=== PATIENT | male | born 1965 | race Caucasian/White ===

== ENCOUNTER → 2016-12-04 | Outpatient (CLI) | payer OTHER | END | disposition home or self-care (01) | LOC: CFH 15:23 | PROVIDERS: ATTEND Orthopaedic Surgery | DX: M25.461 Effusion, right knee (principal) ==

== ENCOUNTER 2017-04-02 12:47 | Day surgery (SDC) | payer OTHER ==
[2017-03-27 09:14] VITALS: BP 123/86
[~2017-04-02] VITALS: Ht 193 cm; Wt 120.0 kg
[~2017-04-02 12:47] MED LIST: ATOR40TA78 PO; LISI1TAB7 PO
[2017-04-02] MEDS ORDERED: ROPIvacaine/PF 0.5%, 30 ML ONE (13:50)
[2017-04-02] MEDS ORDERED: LIDOCAINE/PF 1.5%-EPI 1:200K, 30ML ONE (13:51)
[2017-04-02 13:55] VITALS: BP 123/86
[2017-04-02] MEDS ORDERED: LACTATED RINGERS 1,000 ML IV SCH (13:55)
[2017-04-02] MEDS ORDERED: FENTANYL PF 250 MCG/5ML ONE (13:58)
[2017-04-02] MEDS ORDERED: MIDAZOLAM 1 MG/ML, 2ML ONE (13:58)
[2017-04-02] MEDS ORDERED: DEXAMETHASONE 4 MG/ML, 1ML ONE (14:32)
[2017-04-02] MEDS ORDERED: ONDANSETRON 2MG/ML, 2ML ONE (14:32)
[2017-04-02] MEDS ORDERED: PROPOFOL 10 MG/ML, 50ML ONE (14:32)
[2017-04-02] MEDS ORDERED: CEFAZOLIN 1,000 MG ONE (14:32)
[2017-04-02] MEDS ORDERED: HYDROcodone/APAP 7.5-325MG/15ML UDC ONE (15:25)
[2017-04-02] MEDS ORDERED: FENTANYL PF 100 MCG/2ML ONE (15:25)
[2017-04-02] MEDS ORDERED: METOPROLOL 1 MG/ML, 5ML IV PRN (15:30)
[2017-04-02] MEDS ORDERED: ALBUTEROL/IPRATROPIUM 2.5MG/0.5MG, 3 ML NPPB PRN (15:30)
[2017-04-02] MEDS ORDERED: HYDROcodone/APAP 7.5-325MG/15ML UDC PO PRN (15:30)
[2017-04-02] MEDS ORDERED: hydrALAzine 20 MG/ML, 1ML IV PRN (15:30)
[2017-04-02] MEDS ORDERED: OXYcodone 5 MG/5 ML ORAL.SOL UDC PO PRN (15:30)
[2017-04-02] MEDS ORDERED: ALBUTEROL SULFATE 2.5 MG/3 ML NPPB PRN (15:30)
[2017-04-02] MEDS ORDERED: KETOROLAC 30 MG/1 ML ONE (15:30)
[2017-04-02] MEDS ORDERED: ACETAMINOPHEN 325 MG TABLET PO PRN (15:30)
[2017-04-02] MEDS ORDERED: MEPERIDINE/PF 25MG/0.5ML IVPush PRN (15:30)
[2017-04-02] MEDS ORDERED: LABETALOL 5MG/ML, 20ML IV PRN (15:30)
[2017-04-02] MEDS ORDERED: MIDAZOLAM 1 MG/ML, 2ML IV PRN (15:30)
[2017-04-02] MEDS ORDERED: ONDANSETRON 2MG/ML, 2ML IVPush PRN (15:30)
[2017-04-02] MEDS ORDERED: PROMETHAZINE 25 MG/ML, 1ML IV PRN (15:30)
[2017-04-02] MEDS ORDERED: EPHEDRINE 50 MG/ML, 1ML IVPush PRN (15:30)
[2017-04-02] MEDS ORDERED: HYDROmorphone 1 MG/ML, 1ML IV PRN (15:30)
[2017-04-02] MEDS ORDERED: KETOROLAC 30 MG/1 ML IV PRN (15:30)
[2017-04-02] MEDS: FENTANYL PF 100 MCG/2ML IV PRN ×2 (15:32→15:41)
== END 2017-04-02 17:00 ==
LOC: OUT 12:47
PROVIDERS: ATTEND Orthopaedic Surgery
DX: S83.231A Complex tear of medial meniscus, current injury, right knee, initial encounter (principal); S83.281A Other tear of lateral meniscus, current injury, right knee, initial encounter; M23.41 Loose body in knee, right knee; M65.861 Other synovitis and tenosynovitis, right lower leg; I10 Essential (primary) hypertension; F17.200 Nicotine dependence, unspecified, uncomplicated; X58.XXXA Exposure to other specified factors, initial encounter; Y93.9 Activity, unspecified; Y92.9 Unspecified place or not applicable; Y99.9 Unspecified external cause status
CPT/HCPCS: 29880; J0690; J1100; J1885; J2250; J2405; J2704; J2795; J3010; J3490; J7120

== ENCOUNTER → 2018-08-30 | Outpatient (CLI) | payer OTHER ==
[~2018-08-30] MED LIST changes: +DIPHENHYDRAMINE 50 MG CAPSULE PO ONE; +DIPHENHYDRAMINE 50 MG/ML, 1ML ONE; +OMNIPAQUE 350 MG/ML, 100ML BOTTLE ONE
== END | disposition home or self-care (01) ==
LOC: RAD 11:33
PROVIDERS: ATTEND Internal Medicine Gastroenterology
DX: Z12.11 Encounter for screening for malignant neoplasm of colon (principal); Z11.3 Encounter for screening for infections with a predominantly sexual mode of transmission; D12.0 Benign neoplasm of cecum
CPT/HCPCS: 71260; 74177; J1200; Q9967

== ENCOUNTER 2018-10-04 07:14 | Day surgery (SDC) | payer OTHER ==
[~2018-10-04] VITALS: Ht 193 cm; Wt 116.0 kg
[~2018-10-04 07:14] MED LIST changes: -DIPHENHYDRAMINE 50 MG CAPSULE PO ONE; -DIPHENHYDRAMINE 50 MG/ML, 1ML ONE; -OMNIPAQUE 350 MG/ML, 100ML BOTTLE ONE
[2018-10-04] MEDS ORDERED: SODIUM CHLORIDE 0.9% 1,000 ML IV SCH (08:00)
[2018-10-04 08:23] VITALS: BP 105/73
[2018-10-04] MEDS ORDERED: LIDOCAINE-MPF 1%, 5ML ONE (08:31)
[2018-10-04 08:40] LABS: INTERNATIONAL NORMALIZED RATIO 0.95 (0.93-1.1); PROTHROMBIN TIME 10.1 Seconds (9.6-11.5)
[2018-10-04] MEDS ORDERED: MIDAZOLAM 1 MG/ML, 5ML ONE (08:50)
[2018-10-04] MEDS ORDERED: FENTANYL PF 100 MCG/2ML ONE ×2 (08:50)
[2018-10-04] MEDS ORDERED: FLUMAZENIL 0.1 MG/1 ML, 5ML ONE (08:50)
[2018-10-04] MEDS ORDERED: NALOXONE 1 MG/ML, 2ML ONE (08:51)
== END 2018-10-04 10:30 | disposition home or self-care (01) ==
LOC: OUT 07:14
PROVIDERS: ATTEND Specialist
DX: C18.9 Malignant neoplasm of colon, unspecified (principal); I10 Essential (primary) hypertension; Z72.89 Other problems related to lifestyle; Z98.890 Other specified postprocedural states; Z91.041 Radiographic dye allergy status
CPT/HCPCS: 36415; 49180; 77012; 85610; 88305; 99156; J2250; J3010; 99157; J2310

== ENCOUNTER 2018-10-07 11:29 | Day surgery (SDC) | payer OTHER ==
[~2018-10-07] VITALS: Ht 193 cm; Wt 116.1 kg
[2018-10-07 12:28] VITALS: BP 120/79
[2018-10-07] MEDS ORDERED: LACTATED RINGERS 1,000 ML IV SCH (12:39)
[2018-10-07 13:02] LABS: ALBUMIN 4.2 g/dL (3.4-5.0); ANION GAP 6 mmol/L (5-15); CHLORIDE 110 mmol/L (98-107); CREATININE 0.89 mg/dL (0.7-1.3)
[2018-10-07 13:07] LABS: ALANINE AMINOTRANSFERASE 36 U/L (12-78); ALKALINE PHOSPHATASE 61 U/L (45-117); BILIRUBIN,TOTAL 0.5 mg/dL (0.2-1.0); TOTAL PROTEIN 6.7 g/dL (6.4-8.2)
[2018-10-07] MEDS ORDERED: HEPARIN 1,000 UNITS/ML, 10ML ONE (13:15)
[2018-10-07] MEDS ORDERED: FENTANYL PF 100 MCG/2ML ONE (13:52)
[2018-10-07] MEDS ORDERED: MIDAZOLAM 1 MG/ML, 2ML ONE (13:52)
[2018-10-07] MEDS ORDERED: BUPIVACAINE/EPI 0.5% 1:200K INFIL ONE (14:12)
[2018-10-07] MEDS ORDERED: OXYcodone 5 MG/5 ML ORAL.SOL UDC ONE (14:45)
[2018-10-07] MEDS ORDERED: FENTANYL PF 100 MCG/2ML IV PRN (15:00)
[2018-10-07] MEDS ORDERED: LABETALOL 5MG/ML, 20ML IV PRN (15:00)
[2018-10-07] MEDS ORDERED: OXYcodone 5 MG/5 ML ORAL.SOL UDC PO PRN (15:00)
[2018-10-07] MEDS ORDERED: ONDANSETRON 2MG/ML, 2ML IVPush PRN (15:00)
[2018-10-07] MEDS ORDERED: MIDAZOLAM 1 MG/ML, 2ML IV PRN (15:00)
[2018-10-07] MEDS ORDERED: MEPERIDINE/PF 25MG/0.5ML IVPush PRN (15:00)
[2018-10-07] MEDS ORDERED: HYDROMORPHONE 2 MG/ML IV PRN (15:00)
[2018-10-07] MEDS ORDERED: ONDANSETRON 2MG/ML, 2ML ONE (16:12)
[2018-10-07] MEDS ORDERED: CEFAZOLIN 1,000 MG ONE (16:12)
[2018-10-07] MEDS ORDERED: DEXAMETHASONE 4 MG/ML, 1ML ONE (16:12)
[2018-10-07] MEDS ORDERED: PROPOFOL 10 MG/ML, 20ML ONE (16:12)
== END 2018-10-07 16:15 | disposition home or self-care (01) ==
LOC: OUT 11:29
PROVIDERS: ATTEND Colon & Rectal Surgery
DX: Z45.2 Encounter for adjustment and management of vascular access device (principal); C20 Malignant neoplasm of rectum; E78.00 Pure hypercholesterolemia, unspecified; I10 Essential (primary) hypertension; F17.210 Nicotine dependence, cigarettes, uncomplicated; E66.9 Obesity, unspecified; Z98.890 Other specified postprocedural states; Z98.52 Vasectomy status; Z72.89 Other problems related to lifestyle; Z91.041 Radiographic dye allergy status
CPT/HCPCS: 36415; 36561; 77001; 80053; C1788; J0690; J1100; J1644; J2250; J2405; J2704; J3010; J7120

== ENCOUNTER → 2018-12-24 | Outpatient (CLI) | payer OTHER ==
[~2018-12-24] MED LIST changes: +OMNIPAQUE 350 MG/ML, 100ML BOTTLE ONE
== END | disposition home or self-care (01) ==
LOC: RAD 11:20
PROVIDERS: ATTEND Specialist
DX: C18.7 Malignant neoplasm of sigmoid colon (principal); C78.6 Secondary malignant neoplasm of retroperitoneum and peritoneum; K76.0 Fatty (change of) liver, not elsewhere classified; K76.9 Liver disease, unspecified; R91.8 Other nonspecific abnormal finding of lung field; R19.09 Other intra-abdominal and pelvic swelling, mass and lump; Z79.899 Other long term (current) drug therapy
CPT/HCPCS: 71260; 74177; Q9967

== ENCOUNTER → 2019-03-04 | Outpatient (CLI) | payer OTHER | END | disposition home or self-care (01) | LOC: RAD 13:00 | PROVIDERS: ATTEND Specialist | DX: C18.7 Malignant neoplasm of sigmoid colon (principal) | CPT/HCPCS: 71260; 74177; Q9967 ==